=== PATIENT | female | born 1975 | race Caucasian/White ===

== ENCOUNTER 2018-06-17 13:40 | Emergency (ER) | payer MEDICAID, SELFPAY ==
[2018-06-17 13:45] VITALS: BP 150/70; PULSE 70; RESP 16; TEMP 36.6
--- NOTE | 2018-06-17 14:48 | DI.CT_ITS ---
SYMPTOM/DIAGNOSIS: BLUNT TRAUMA, RT POSTERIOR SCALP LACERATION CERVICAL SPINE CT: CT examination of the cervical spine was performed utilizing multi slice acquisition and multi planar reconstruction. Images obtained through the lung apices are unremarkable. Tracheal laryngeal structures appear intact. There is disc space narrowing at the C 5-6 level with prominent hypertrophic changes also seen involving the vertebral endplates at this level. There is a mild resultant kyphosis. There is no evidence of fracture or dislocation. No cervical disc herniation by CT criteria. CONCLUSION: No evidence of acute cervical injury. NONCONTRAST HEAD CT: A noncontrast cranial CT was performed. Note is made of mucoperiosteal thickening of some ethmoid air cells on the left and mucoperiosteal thickening of the right and left sphenoid sinuses consistent with chronic sinusitis. Orbital structures appear intact. Mastoid air cells are well aerated. No temporal bone abnormality is seen. No calvarial fracture identified. Ventricular system is normal in appearance. There is no evidence of acute intracranial hemorrhage, mass effect or midline shift. CONCLUSION: No evidence of acute intracranial injury.
[2018-06-17] MEDS: Tetanus & Diphtheria Tox,ADULT 0.5 ML VIAL IM (14:49)
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
[2018-06-17] MEDS: Lidocaine/Epinephri/Tetracaine Topical Gel 3 ML TP (15:14)
[2018-06-17] MEDS: Ibuprofen 800 MG TAB PO (15:14)
== END 2018-06-17 16:15 | disposition home or self-care (01) ==
PROVIDERS: Emergency Provider Nurse Practitioner Family; PCP Naturopath
DX: S09.90XA Unspecified injury of head, initial encounter (principal); S01.01XA Laceration without foreign body of scalp, initial encounter; W20.8XXA Other cause of strike by thrown, projected or falling object, initial encounter
CPT/HCPCS: 12002; 90471; 70450; 72125